=== PATIENT | male | born 1990 | race Caucasian/White ===

== ENCOUNTER 2017-01-27 11:52 | Emergency (ER) | payer OTHER ==
[2017-01-27 11:58] VITALS: BP 135/82
--- NOTE | 2017-01-27 12:19 | ED Physician Documentation ---
PD HPI HEENT - Stated complaint Stated Complaint: R FACE NO MOTOR SKILLS, R EYE SWOLLEN PRESSURE - Chief complaint Chief Complaint: Heent - History obtained from History obtained from: Patient - History of Present Illness Timing - onset: Other (This previously healthy 26-year-old has had for the last 2 days retro-orbital pressure which is slowly worsening and expanding, it seems focused behind the eye and just anterior and inferior to the right tragus. Over the last 24 hours has developed a facial palsy on that side with drooling and eye watering. No recent cold sores. No fevers. He tried some over-the- counter medications for sinus issues but he does not actually have sinus drainage. No fever. No recent travel.) Review of Systems Constitutional: denies: Fever, Chills Eyes: denies: Loss of vision, Decreased vision, Photophobia Ears: denies: Loss of hearing, Ear pain Nose: denies: Rhinorrhea / runny nose, Congestion Throat: denies: Sore throat PD PAST MEDICAL HISTORY - Past Medical History Past Medical History: No - Past Surgical History Past Surgical History: No - Present Medications Home Medications: Ambulatory Orders Medication Instructions Recorded Confirmed Acyclovir 800 mg PO 5XD 10 Days 01/27/17 Amox/Clav 875/125 [Augmentin] 1 each PO Q12H 14 Days 01/27/17 HYDROcod/ACETAM 5/325 [[place] 5/325] 1 - 2 ea PO Q6H PRN #15 tablet 01/27/17 predniSONE [Deltasone] 20 mg PO [id number] #21 tab 01/27/17 - Allergies Allergies/Adverse Reactions: Allergies Allergy/AdvReac Type Severity Reaction Status Date / Time No Known Drug Allergies Allergy Verified 01/27/17 11:58 - Social History Does the pt smoke?: No Smoking Status: Never smoker Does the pt drink ETOH?: Yes Substance Use and Type: Marijuana - Family History Family history: reports: Non contributory PD ED PE NORMAL - Vitals Vital signs reviewed: Yes - General General: Alert and oriented X 3, No acute distress - HEENT HEENT: Other (He has modest right-sided facial swelling with some upper and lower lid edema on the right. He does not have any obvious vesicles in the ear or on the face. He does have a complete facial palsy on the right that does not spare the forehead. sensation is intact and symmetric.) - Neck Neck: Supple, no meningeal sign, No bony TTP - Cardiac Cardiac: RRR, No murmur - Respiratory Respiratory: No respiratory distress, Clear bilaterally - Abdomen Abdomen: Soft, Non tender - Neuro Neuro: Alert and oriented X 3, No motor deficit, No sensory deficit, Normal speech, Other (nO ABN ON FINGER-NOSE OR STRENGTH IN ALL FOUR.) - Psych Psych: Normal mood, Normal affect Results - Vitals Vitals: Vital Signs - 24 hr 01/27/17 11:56 Temperature 36.6 C Heart Rate 78 Respiratory 22 Rate Blood Pressure 135/82 H O2 Saturation 100 Oxygen O2 Source Room air - Labs Labs: Laboratory Tests 01/27/17 12:55 WBC 10.2 RBC 4.52 L Hgb 13.4 L Hct 39.3 L MCV 87.0 MCH 29.8 MCHC 34.2 RDW 13.5 Plt Count 258 MPV 7.5 Neut # 7.9 H Lymph # 1.4 L [place] # 0.9 Eos # 0.0 Baso # 0.0 Absolute Nucleated RBC 0.00 Nucleated RBCs 0.0 - Rads (name of study) CT head and face Radiology: EMP read contemporaneously (chronic pansinusitis R>L otherwise NAD) PD MEDICAL DECISION MAKING - ED course ED course: 26-year-old gentleman with what appears to be typical Paige's palsy, but has some atypical symptoms including significant facial pressure. As such imaging was performed showing chronic pansinusitis which may be contributory. Departure - Departure Disposition: 01 Home, Self Care Clinical Impression: Paige's palsy, Chronic pansinusitis Condition: Good Record reviewed to determine appropriate education?: Yes Instructions: ED Sinusitis Abx Tx, ED [place] Palsy Prescriptions: Acyclovir 800 mg PO 5XD 10 Days Amox/Clav 875/125 [Augmentin] 1 each PO Q12H 14 Days predniSONE [Deltasone] 20 mg PO [id number] #21 tab HYDROcod/ACETAM 5/325 [[place] 5/325] 1 - 2 ea PO Q6H PRN #15 tablet PRN Reason: Pain Comments: Follow-up with your physician at the [facility] within the week, consider ENT or other consultation if not rapidly improving. Return if worse or if new symptoms develop. Your blood pressure was elevated today on check into the emergency department. This does not mean that you have hypertension, it is a common phenomenon to come to the emergency department and have elevated blood pressure. I recommend that she see her primary care physician within the week to have it rechecked when you are feeling better. Do not drink or drive while taking narcotic pain medication. Note that many narcotic pain relievers also contain Tylenol/acetaminophen. Please ensure that your total dose of acetaminophen from all sources does not exceed 3 g (3000 mg) per day. You may get constipated while on this medication. Take a stool softener such as Colace twice a day while you are on it. Also add an [id number] laxative such as senna or MiraLAX on any day that you do not have a bowel movement. If you received a narcotic pain medication or sedative while in the emergency department, do not drive for the next 24 hours.
--- NOTE | 2017-01-27 13:02 | CT Preliminary Report ---
Exam: CT Head W/O IMPRESSION: Normal examination. No mass, hemorrhage, CVA or other demonstrated cause for the patient' s symptoms. [facility] SITE ID: [id number]
--- NOTE | 2017-01-27 13:04 | CT Report ---
EXAM: CT HEAD WITHOUT CONTRAST EXAM DATE: 01/27/2017 12:45 PM. CLINICAL HISTORY: 26-year-old male with Paige's palsy with atypical symptoms. COMPARISON: None. TECHNIQUE: Multiaxial CT images were obtained from the foramen magnum to the vertex on an emergent ba sis. IV contrast: None. Reformats: Coronal. In accordance with CT protocol optimization, one or more of the following dose reduction techniques w ere utilized for this exam: automated exposure control, adjustment of mA and/or KV based on patient s ize, or use of iterative reconstructive technique. FINDINGS: Parenchyma: No intraparenchymal hemorrhage. No evidence of mass, midline shift, or CT findings of inf arction. Ha-white differentiation is distinct. Extraaxial Spaces: Normal for age. No subdural or epidural collections identified. Ventricles: Normal in size and position. Sinuses: Imaged paranasal sinuses, orbits, and mastoids show no significant abnormality. Bones: No evidence of fracture or calvarial defect. Other: None. IMPRESSION: Normal examination. No mass, hemorrhage, CVA or other demonstrated cause for the patient' s symptoms. [facility] Referring Provider Line: [phone] SITE ID: [id number]
--- NOTE | 2017-01-27 13:06 | CT Preliminary Report ---
Exam: CT Facial Bones W/O IMPRESSION: Findings consistent with chronic bilateral maxillary, ethmoid and sphenoid sinusitis, rig ht greater than left. No changes of acute sinusitis. Otherwise normal. No evident acute process. [facility] SITE ID: [id number]
[2017-01-27 13:08] LABS: BASOPHILS % (AUTO) 0.2 %; HCT - HEMATOCRIT 39.3 % (42.0-52.0); HGB - HEMOGLOBIN 13.4 g/dL (14.0-18.0); LYMPHOCYTES # (AUTO) 1.4 10^3/uL (1.5-3.5); LYMPHOCYTES % (AUTO) 13.4 %; MEAN CORPUSCULAR HEMOGLOBIN 29.8 pg (27.0-31.0); MEAN CORPUSCULAR HGB CONC 34.2 g/dL (32.0-36.0); MEAN PLATELET VOLUME 7.5 fL (7.4-11.4); MONOCYTES # (AUTO) 0.9 10^3/uL (0.0-1.0); MONOCYTES % (AUTO) 8.6 %; NEUTROPHILS # (AUTO) 7.9 10^3/uL (1.5-6.6); NEUTROPHILS % (AUTO) 77.8 %; RED BLOOD COUNT 4.52 10^6/uL (4.70-6.10); RED CELL DISTRIBUTION WIDTH 13.5 % (12.0-15.0); UNCORRECTED WHITE BLOOD COUNT 10.2 x10^3/uL; WHITE BLOOD COUNT 10.2 x10^3/uL (4.8-10.8)
--- NOTE | 2017-01-27 13:08 | CT Report ---
EXAM: CT MAXILLOFACIAL WITHOUT CONTRAST EXAM DATE: 01/27/2017 12:45 PM. CLINICAL HISTORY: 26-year-old male with atypical symptoms of Paige's palsy. COMPARISONS: None. TECHNIQUE: Thin-section axial images were acquired of the face without contrast on an emergent basis. Post-processing: Coronal and sagittal reformats. Other: None. In accordance with CT protocol optimization, one or more of the following dose reduction techniques w ere utilized for this exam: automated exposure control, adjustment of mA and/or KV based on patient s ize, or use of iterative reconstructive technique. FINDINGS: Bones: No fracture or bone lesion. Temporomandibular Joints: The temporomandibular joints are symmetric and normally located. Sinuses: Mild mucoperiosteal thickening in the maxillary sinuses with small 1 cm retention cyst anter omedially on the right. Patchy mucoperiosteal thickening in the ethmoid air cells bilaterally. Fronta l sinuses are clear. Mild thickening in the sphenoid sinuses as well. No air-fluid levels. Other: Visualized orbits and mastoid air cells are unremarkable. IMPRESSION: Findings consistent with chronic bilateral maxillary, ethmoid and sphenoid sinusitis, rig ht greater than left. No changes of acute sinusitis. Otherwise normal. No evident acute process. [facility] Referring Provider Line: [phone] SITE ID: [id number]
[2017-01-27 13:17] LABS: ALBUMIN/GLOBULIN RATIO 1.1 (1.0-2.2); BILIRUBIN,TOTAL 0.7 mg/dL (0.2-1.0); CALCIUM 9.2 mg/dL (8.5-10.3); CREATININE 0.8 mg/dL (0.6-1.2); POTASSIUM 3.5 mmol/L (3.5-5.0); TOTAL PROTEIN 7.8 g/dL (6.7-8.2)
[2017-01-27] MEDS ORDERED: HYDROcod/ACETAM 5/325 MG TABLET ONE (13:37)
[2017-01-27] MEDS: HYDROcod/ACETAM 5/325 MG TABLET PO STA (13:40)
== END 2017-01-27 13:44 | disposition home or self-care (01) ==
LOC: ED 11:52
DX: G51.0 Bell's palsy (principal); J32.4 Chronic pansinusitis; R03.0 Elevated blood-pressure reading, without diagnosis of hypertension
CPT/HCPCS: 36415; 70450; 70486; 80053; 83690; 85025; 99283